=== PATIENT | female | born 1960 | race Caucasian/White ===

== ENCOUNTER 2017-07-20 15:47 | Emergency (ER) | payer BC ==
--- NOTE | 2017-07-20 16:52 | ED ---
Extremity Problem HPI - General Chief complaint: Extremity Problem,Nontraumatic Stated complaint: Post Op/Foot infection Time Seen by Provider: 07/20/17 16:00 Source: patient Mode of arrival: ambulatory Limitations: no limitations - History of Present Illness Initial comments: Patient presents with left ankle swelling. Patient states she had a ganglion cyst removed by her orthopedic surgeon on July 02. Patient states 3 days ago left ankle and foot started swelling. Patient denies pain. Patient denies any new trauma. Patient states she had sutures removed from the incision one week ago. Patient denies numbness or weakness in the foot. Denies temperature changes. Denies pain or skin changes of the elizabeth or calf area. Patient denies history of CHF or diuretic use. Patient denies fevers, chills, nausea, vomiting MD Complaint: joint swelling - Related Data Home Medications Medication Instructions Recorded Confirmed Aspirin [Adult Low Dose Aspirin EC] 81 mg PO DAILY 07/20/17 07/20/17 Cholecalciferol [Vitamin D3] 1,000 unit PO DAILY 07/20/17 07/20/17 Hydroxyurea [Hydrea] 1,000 mg PO Q48H 07/20/17 07/20/17 Hydroxyurea [Hydrea] 500 mg PO Q48H 07/20/17 07/20/17 Sertraline [Zoloft] 100 mg PO DAILY 07/20/17 07/20/17 Allergies Allergy/AdvReac Type Severity Reaction Status Date / Time cephalexin [From Keflex] AdvReac Nausea & Verified 07/20/17 16:15 Vomiting & Diarrhea Review of Systems ROS Statement: Those systems with pertinent positive or pertinent negative responses have been documented in the HPI. ROS Other: All systems not noted in ROS Statement are negative. Constitutional: Denies: fever, chills Eyes: Denies: vision change ENT: Denies: throat pain Respiratory: Denies: cough, dyspnea Cardiovascular: Denies: chest pain Endocrine: Denies: fatigue Gastrointestinal: Denies: abdominal pain, nausea, vomiting Genitourinary: Denies: urgency, dysuria Musculoskeletal: Reports: joint swelling. Denies: back pain, arthralgia, myalgia Skin: Denies: rash, change in color Neurological: Denies: weakness, numbness Past Medical History Past Medical History: Blood Disorder History of Any Multi-Drug Resistant Organisms: None Reported Past Surgical History: Appendectomy, Cholecystectomy, Hysterectomy, Orthopedic Surgery Additional Past Surgical History / Comment(s): left foot, right hand, knee, partical hyster Past Psychological History: Depression Smoking Status: Former smoker Past Alcohol Use History: Occasional Past Drug Use History: None Reported General Exam - General Exam Comments Initial Comments: No acute distress. Conversing normally. Calm, pleasant. Well appearing. Not apparent pain. Limitations: no limitations General appearance: alert, in no apparent distress Head exam: Present: atraumatic, normocephalic Eye exam: Present: EOMI ENT exam: Present: mucous membranes moist Neck exam: Present: normal inspection Respiratory exam: Present: normal lung sounds bilaterally Cardiovascular Exam: Present: regular rate, normal rhythm GI/Abdominal exam: Present: soft. Absent: distended Extremities exam: Present: joint swelling, other (Trace pitting edema of the left foot and left ankle medially and laterally. No gross deformities of the ankle. No bony tenderness of the ankle. Minimal pain with range of motion of left ankle.) Neurological exam: Present: alert, oriented X3 Psychiatric exam: Present: normal affect, normal mood Skin exam: Present: warm, dry, intact, normal color, other (Mild warmth of left ankle. Left lateral ankle incision appears well-healed, no drainage. No erythema of the left lower extremity or left ankle.). Absent: rash, erythema Course Vital Signs 07/20/17 15:51 Temperature 98.3 F Pulse Rate 100 Respiratory 20 Rate Blood Pressure 147/65 O2 Sat by Pulse 98 Oximetry Medical Decision Making - Medical Decision Making Mild swelling of left ankle left foot, no other skin changes appreciated. No signs of acute infection. WBC 4.3 Afebrile. X-ray left ankle shows soft tissue swelling, no acute fracture or signs of osteomyelitis. Patient updated with the results. At this time and do not feel patient has signs of infection requiring antibiotic treatment. Discussed it with patient and she agrees. Discussed rest, elevation, compression, anti-inflammatory medication therapies. Patient agrees to follow-up in her ortho surgeon's office tomorrow. Return to ER if new or worsening symptoms. We'll discharge home at this time. - Lab Data Result diagrams: 07/20/17 17:06 07/20/17 17:06 Lab Results 07/20/17 07/20/17 Range/Units 17:06 17:06 WBC 4.3 (3.8-10.6) k/uL RBC 3.40 L (3.80-5.40) m/uL Hgb 11.3 L (11.4-16.0) gm/dL Hct 35.1 (34.0-46.0) % MCV 103.1 H (80.0-100.0) fL MCH 33.2 (25.0-35.0) pg MCHC 32.2 (31.0-37.0) g/dL RDW 19.0 H (11.5-15.5) % Plt Count 242 (150-450) k/uL Neutrophils % (Manual) 78 % Band Neutrophils % 5 % Lymphocytes % (Manual) 16 % Eosinophils % (Manual) 1 % Neutrophils # (Manual) 3.50 (1.3-7.7) k/uL Lymphocytes # (Manual) 0.69 L (1.0-4.8) k/uL Eosinophils # (Manual) 0.04 (0-0.7) k/uL Nucleated RBCs 0 (0-0) /100 WBC Manual Slide Review Performed Toxic Granulation Present Large Platelets Present Polychromasia Present Hypochromasia Slight Poikilocytosis Slight Anisocytosis Slight Anisocytosis (manual) Present Macrocytosis Moderate Sodium 141 (137-145) mmol/L Potassium 4.5 (3.5-5.1) mmol/L Chloride 105 (98-107) mmol/L Carbon Dioxide 24 (22-30) mmol/L Anion Gap 12 mmol/L BUN 15 (7-17) mg/dL Creatinine 0.70 (0.52-1.04) mg/dL Est GFR (MDRD) Af Amer >60 (>60 ml/min/1.73 sqM) Est GFR (MDRD) Non-Af >60 (>60 ml/min/1.73 sqM) Glucose 94 (74-99) mg/dL Calcium 9.0 (8.4-10.2) mg/dL C-Reactive Protein 16.0 H (<10.0) mg/L Disposition Clinical Impression: Left ankle swelling Disposition: HOME SELF-CARE Condition: Good Instructions: Swollen Joint (ED) Additional Instructions: Make appointment to be evaluated tomorrow by your orthopedic surgeon. Return to ER if new or worsening symptoms including redness, fevers, nausea, vomiting, pain. Referrals: Jay Rothman Jr, DO [Primary Care Provider] - 1-2 days
[2017-07-20 17:19] LABS: Anisocytosis Slight; CH 33.9; CHCM 33.1; HCT 35.1 % (34.0-46.0); HDW 3.99; HGB 11.3 gm/dL (11.4-16.0); Hypochromasia Slight; MCH 33.2 pg (25.0-35.0); MCHC 32.2 g/dL (31.0-37.0); MCV 103.1 fL (80.0-100.0); Macrocytosis Moderate; Poikilocytosis Slight; WBC 4.3 k/uL (3.8-10.6); WBC (Perox) 4.24
--- NOTE | 2017-07-20 17:29 | XR ---
EXAMINATION TYPE: XR ankle complete LT DATE OF EXAM: 07/20/2017 CLINICAL HISTORY: Prior cyst removal with persistent swelling. TECHNIQUE: Frontal, lateral and oblique images of the left ankle are obtained. COMPARISON: None. FINDINGS: Mild soft tissue swelling is seen of the left ankle without focality. There is no acute fr acture/dislocation evident in the left ankle. The ankle mortise appears within normal limits. Modera te Achilles and plantar enthesophytes are noted. IMPRESSION: 1. Mild generalized soft tissue swelling of the left ankle without focality. 2. No acute fracture or dislocation in the left ankle. 3. Moderate Achilles and plantar heel spurs.
[2017-07-20 17:30] LABS: Anion Gap 12 mmol/L; Blood Urea Nitrogen 15 mg/dL (7-17); Carbon Dioxide 24 mmol/L (22-30); Chloride 105 mmol/L (98-107); Glucose 94 mg/dL (74-99); Non-African American GFR(MDRD) >60 (>60 ml/min/1.73 sqM); Potassium 4.5 mmol/L (3.5-5.1); Sodium 141 mmol/L (137-145)
[2017-07-20 17:37] LABS: Add Differential Manual Differential
[2017-07-20 17:42] LABS: Band Neutrophils % 5 %; Large Platelets Present; Manual Review Performed; Nucleated Red Blood Cells 0 /100 WBC (0-0); Polychromasia Present; Total Cells Counted 100; Toxic Granulation Present
[2017-07-20 18:14] LABS: Erythrocyte Sedimentation Rate 2 mm/hr (0-20)
[2017-07-20 18:16] VITALS: BP 112/55; PULSE 80; RESP 16; TEMP 98.7
== END 2017-07-20 18:14 | disposition home or self-care (01) ==
LOC: EC 15:47
DX: M25.472 Effusion, left ankle (principal); M25.475 Effusion, left foot; M79.89 Other specified soft tissue disorders; F32.9 Major depressive disorder, single episode, unspecified; Z87.891 Personal history of nicotine dependence; Z79.82 Long term (current) use of aspirin; Z79.899 Other long term (current) drug therapy; Z88.1 Allergy status to other antibiotic agents; Z98.890 Other specified postprocedural states
CPT/HCPCS: 36415; 80048; 85025; 85652; 86140; 99283

== ENCOUNTER → 2017-08-27 | Outpatient (CLI) | payer BC ==
--- NOTE | 2017-08-27 11:43 | BD ---
EXAMINATION TYPE: MG DEXA axial skeleton. DATE OF EXAM: 08/27/2017 COMPARISON: NONE CLINICAL HISTORY: Osteoporosis screening . Postmenopausal female. Height: 5 FT 1 IN Weight: 158 FRAX RISK QUESTIONS: Alcohol (3 or more units per day): NO Family History (Parent hip fracture): NO Glucocorticoids (More than 3mos): NO (Ex: prednisone, prednisolone, methylprednisolone, dexamethasone, and hydrocortisone). History of Fracture in Adulthood: NO Secondary Osteoporosis: 1. Type 1 Diabetes: NO 2. Hyperthyroidism: NO 3. Menopause before 45: NO 4. Malnutrition: NO 5. Chronic liver disease: NO Rheumatoid Arthritis: NO Current Tobacco Use: NO RISK FACTORS HISTORY OF: Active: YES Postmenopausal woman: PART HYST AGE37 MEDICATIONS: Additional Medications: VIT D , HYDREA, ZOLOFT, BABY ASPIRIN Additional History: EXAM MEASUREMENTS: Bone mineral densitometry was performed using the [employer] System. Bone mineral density as measured about the Lumbar spine is: ----- L1-L4(G/cm2): 1.203 T Score Values are as follows: ----- L2: 0.6 ----- L3: -0.2 ----- L4: -0.3 ----- L1-L4: 0.2 Bone mineral density has: INCREASED 5.1 % since study of: 2010 Bone mineral density about the R hip (g/cm2): 1.055 Bone mineral density about the L hip (g/cm2): 1.138 T Score values are as follows: -----R Neck: 0.1 -----L Neck: 0.7 -----R Total: 0.9 -----L Total: 1.2 Bone mineral density has: INCREASED 11.7 % since study of: 2010 IMPRESSION: Normal (Values between +1 and -1 indicate normal bone mass). Consider repeating this study in 5 year s or sooner if there is some new clinical indication. NOTE: T-SCORE=SD OF THE YOUNG ADULT MEAN.
--- NOTE | 2017-08-29 06:58 | MM ---
Reason for exam: screening (asymptomatic). Last mammogram was performed 2 years and 5 months ago. History: Patient is postmenopausal. Took estrogen for 3 months. Physical Findings: A clinical breast exam by your physician is recommended on an annual basis and results should be correlated with mammographic findings. MG 3D Screening Mammo W/Cad Bilateral CC and MLO view(s) were taken. Prior study comparison: March 31, 2015, bilateral MG screening mammo w CAD. April 23, 2012, [facility] DIGITAL LEFT BREAST MAMMOGRAM w/CAD. The breast tissue is heterogeneously dense. This may lower the sensitivity of mammography. There is no discrete abnormality. No significant changes when compared with prior studies. ASSESSMENT: Negative, BI-RAD 1 RECOMMENDATION: Routine screening mammogram of both breasts in 1 year.
== END | disposition home or self-care (01) ==
LOC: RADMAMWWP 09:25
PROVIDERS: ATTEND Obstetrics & Gynecology
DX: Z12.31 Encounter for screening mammogram for malignant neoplasm of breast (principal); M89.9 Disorder of bone, unspecified
CPT/HCPCS: 77063; 77067; 77080

== ENCOUNTER → 2018-06-05 | Outpatient (CLI) | payer BC ==
--- NOTE | 2018-06-05 17:09 | XR ---
EXAMINATION TYPE: XR chest 2V DATE OF EXAM: 06/05/2018 COMPARISON: Prior chest x-ray 08/01/2016 HISTORY: Cough and fever, polycythemia TECHNIQUE: Frontal and lateral views of the chest are obtained. FINDINGS: There is no focal air space opacity, pleural effusion, or pneumothorax seen. The cardiac silhouette size is within normal limits. The osseous structures are intact. IMPRESSION: No acute cardiopulmonary process. The exam is stable.
== END | disposition home or self-care (01) ==
LOC: RADXRMAIN 16:46
PROVIDERS: ATTEND Internal Medicine Hematology & Oncology
DX: R50.9 Fever, unspecified (principal); D46.9 Myelodysplastic syndrome, unspecified; D45 Polycythemia vera; D47.3 Essential (hemorrhagic) thrombocythemia; I10 Essential (primary) hypertension
CPT/HCPCS: 71046

== ENCOUNTER → 2019-06-28 | Outpatient (CLI) | payer BC ==
--- NOTE | 2019-06-28 13:44 | XR ---
EXAMINATION TYPE: XR chest 2V DATE OF EXAM: 06/28/2019 COMPARISON: Prior chest x-ray 06/05/2018 HISTORY: Cough, congestion and weakness TECHNIQUE: Frontal and lateral views of the chest are obtained. FINDINGS: There is no focal air space opacity, pleural effusion, or pneumothorax seen. The cardiac silhouette size is within normal limits. The osseous structures are intact. IMPRESSION: No acute cardiopulmonary process.
== END | disposition home or self-care (01) ==
LOC: RADXRMAIN 10:23
PROVIDERS: ATTEND Family Medicine
DX: R05 Cough (principal)
CPT/HCPCS: 71046

== ENCOUNTER → 2019-10-01 | Outpatient (CLI) | payer BC ==
--- NOTE | 2019-10-04 11:25 | MM ---
Reason for exam: screening (asymptomatic). Last mammogram was performed 2 years and 1 month ago. History: Patient is postmenopausal and history of other cancer. Took hormonal contraceptives for 9 months. Took estrogen for 3 months. Physical Findings: A clinical breast exam by your physician is recommended on an annual basis and results should be correlated with mammographic findings. MG Screening Mammo w CAD Bilateral CC and MLO view(s) were taken. Prior study comparison: August 27, 2017, bilateral MG 3d screening mammo w/cad. March 31, 2015, bilateral MG screening mammo w CAD. There are scattered fibroglandular densities. Benign appearing bilateral calcifications. No suspicious abnormality. Right biopsy marker noted. No significant changes when compared with prior studies. ASSESSMENT: Benign, BI-RAD 2 RECOMMENDATION: Routine screening mammogram of both breasts in 1 year.
== END | disposition home or self-care (01) ==
LOC: RADMAMWWP 10:09
PROVIDERS: ATTEND Obstetrics & Gynecology
DX: Z12.31 Encounter for screening mammogram for malignant neoplasm of breast (principal)
CPT/HCPCS: 77067

== ENCOUNTER → 2020-02-18 | Outpatient (CLI) | payer BC ==
[2020-02-18 11:00] LABS: Anisocytosis Slight; HCT 35.3 % (34.0-46.0); HGB 11.2 gm/dL (11.4-16.0); Hypochromasia Slight; MCHC 31.8 g/dL (31.0-37.0); Mean Platelet Volume 8.8; Platelet Count 299 k/uL (150-450); Poikilocytosis Slight; RBC 3.88 m/uL (3.80-5.40)
[2020-02-18 12:59] LABS: Band Neutrophils % 11 %; Eosinophils # (M) 0.17 k/uL (0-0.7); Metamyelocytes % 4 %; Myelocytes # (M) 0.17 k/uL (0); Myelocytes % 2 %; Neutrophils % (M) 58 %; Nucleated Red Blood Cells 4 /100 WBC (0-0); Promyelocytes # (M) 0.17 k/uL (0); Promyelocytes % 2 %; Total Cells Counted 200
[2020-02-18 13:00] LABS: Lymphocytes # (M) 1.51 k/uL (1.0-4.8); Metamyelocytes # (M) 0.34 k/uL (0); Monocytes # (M) 0.34 k/uL (0-1.0); WBC 8.4 k/uL (3.8-10.6)
[2020-02-18 13:03] LABS: Polychromasia Present
[2020-02-18 15:43] LABS: Albumin 4.5 g/dL (3.80-4.90); Albumin/Globulin Ratio 2.65 (1.60-3.17); Anion Gap 6.2 mmol/L (4.00-12.00); BUN/Creat Ratio 23.33 Ratio (12.00-20.00); Calcium 9.1 mg/dL (8.7-10.3); Carbon Dioxide 26.8 mmol/L (21.6-31.8); Globulin 1.7 g/dL (1.6-3.3); Non-African American GFR(CKD) 98.4 (60.0-200.0); Potassium 4.6 mmol/L (3.5-5.5); Total Bilirubin 0.6 mg/dL (0.2-1.2); Total Protein 6.2 g/dL (6.2-8.2)
== END | disposition home or self-care (01) ==
LOC: LABWHC1 09:45
PROVIDERS: ATTEND Internal Medicine
DX: D47.1 Chronic myeloproliferative disease (principal)
CPT/HCPCS: 36415; 80053; 83615; 85025

== ENCOUNTER → 2020-07-25 | Outpatient (CLI) | payer BC ==
[2020-07-25 09:30] LABS: Anisocytosis Slight; HCT 38.2 % (34.0-46.0); HGB 12.8 gm/dL (11.4-16.0); MCH 29.2 pg (25.0-35.0); MCHC 33.4 g/dL (31.0-37.0); MCV 87.5 fL (80.0-100.0); Mean Platelet Volume 9.2; Platelet Count 216 k/uL (150-450); Poikilocytosis Slight; RBC 4.37 m/uL (3.80-5.40); RDW 18.8 % (11.5-15.5); WBC 9.6 k/uL (3.8-10.6)
[2020-07-25 10:10] LABS: Band Neutrophils % 12 %; Lymphocytes # (M) 1.82 k/uL (1.0-4.8); Metamyelocytes # (M) 0.29 k/uL (0); Metamyelocytes % 3 %; Monocytes # (M) 0.29 k/uL (0-1.0); Myelocytes # (M) 0.29 k/uL (0); Myelocytes % 3 %; Neutrophils % (M) 60 %; Nucleated Red Blood Cells 0 /100 WBC (0-0); Total Cells Counted 200
[2020-07-25 10:11] LABS: Polychromasia Present
[2020-07-25 19:16] LABS: African American GFR (CKD) 92.2 (60.0-200.0); Albumin 5.1 g/dL (3.80-4.90); Albumin/Globulin Ratio 2.55 (1.60-3.17); Anion Gap 10.3 mmol/L (4.00-12.00); BUN/Creat Ratio 31.25 Ratio (12.00-20.00); Calcium 9.7 mg/dL (8.7-10.3); Carbon Dioxide 23.7 mmol/L (21.6-31.8); Non-African American GFR(CKD) 79.6 (60.0-200.0); Total Bilirubin 0.6 mg/dL (0.3-1.2); Total Protein 7.1 g/dL (6.2-8.2)
== END | disposition home or self-care (01) ==
LOC: LABWHC1 08:07
PROVIDERS: ATTEND Internal Medicine
DX: D47.1 Chronic myeloproliferative disease (principal)
CPT/HCPCS: 36415; 80053; 85025

== ENCOUNTER → 2021-01-19 | Outpatient (CLI) | payer BC ==
[2021-01-19 14:41] LABS: HCT 37.5 % (37.2-46.3); HGB 11.9 g/dL (12.0-15.0); MCH 28.7 pg (27.0-32.0); MCHC 31.7 g/dL (32.0-37.0); MCV 90.4 fL (80.0-97.0); Platelet Count 163 X 10*3/uL (140-440); RBC 4.15 X 10*6/uL (4.10-5.20); RDW 17.3 % (11.5-14.5); WBC 5.96 X 10*3/uL (4.50-10.00)
[2021-01-19 15:15] LABS: Basophils # (M) 0.12 X 10*3/uL (0.00-0.10); Eosinophils # (M) 0.18 X 10*3/uL (0.04-0.35); Lymphocytes # (M) 1.43 X 10*3/uL (0.90-5.00); Metamyelocytes % 4 % (0-0); Monocytes # (M) 0.18 X 10*3/uL (0.20-1.00); Neutrophils # (M) 3.81 X 10*3/uL (2.00-8.90); Neutrophils % (M) 64 %
[2021-01-19 17:40] LABS: African American GFR (CKD) 107.6 (60.0-200.0); Albumin 4.7 g/dL (3.80-4.90); Albumin/Globulin Ratio 2.47 (1.60-3.17); Anion Gap 7.7 mmol/L (4.00-12.00); BUN/Creat Ratio 24.29 Ratio (12.00-20.00); Calcium 9.7 mg/dL (8.7-10.3); Carbon Dioxide 28.3 mmol/L (21.6-31.8); Globulin 1.9 g/dL (1.6-3.3); Non-African American GFR(CKD) 92.9 (60.0-200.0); Potassium 4.3 mmol/L (3.5-5.5); Total Bilirubin 0.5 mg/dL (0.2-1.2); Total Protein 6.6 g/dL (6.2-8.2)
== END | disposition home or self-care (01) ==
LOC: LABWHC1 10:01
PROVIDERS: ATTEND Internal Medicine
DX: D47.1 Chronic myeloproliferative disease (principal)
CPT/HCPCS: 36415; 80053; 85025

== ENCOUNTER → 2022-02-13 | Outpatient (CLI) | payer BC ==
[2022-02-13 14:22] LABS: HCT 30.2 % (37.2-46.3); MCH 27.6 pg (27.0-32.0); MCHC 29.8 g/dL (32.0-37.0); MCV 92.6 fL (80.0-97.0); Mean Platelet Volume 10.7 fL (9.5-12.2); NRBC Per 100 WBC 2.6 /100 WBCS (0.0-0.0); Platelet Count 143 X 10*3/uL (140-440); RBC 3.26 X 10*6/uL (4.10-5.20); RDW 16.8 % (11.5-14.5); WBC 2.71 X 10*3/uL (4.50-10.00)
[2022-02-13 15:47] LABS: Basophils # (M) 0.03 X 10*3/uL (0.00-0.10); Eosinophils # (M) 0.05 X 10*3/uL (0.04-0.35); Hypochromasia (M) 2+; Lymphocytes # (M) 0.54 X 10*3/uL (0.90-5.00); Metamyelocytes % 4 % (0-0); Monocytes # (M) 0.05 X 10*3/uL (0.20-1.00); Myelocytes % 1 % (0-0); Neutrophils % (M) 70 %; Tear Drop Cells 2+
== END | disposition home or self-care (01) ==
LOC: LABWHC1 08:18
PROVIDERS: ATTEND Internal Medicine
DX: D47.1 Chronic myeloproliferative disease (principal)
CPT/HCPCS: 36415; 85025

== ENCOUNTER → 2022-07-29 | Outpatient (CLI) | payer BC ==
--- NOTE | 2022-07-30 07:31 | MM ---
Reason for Exam: Screening (asymptomatic). Last mammogram was performed 2 year(s) and 10 month(s) ago. Patient History: Menarche at age 12. First Full-Term at age 26. Hysterectomy at age 38. Postmenopausal. Patient has history of breast feeding. Other cancer under age 50. Estrogen for 3 months. Hormonal Contraceptives for 9 months. Risk Values: Jodi 5 year model risk: 1.6%. NCI Lifetime model risk: 6.8%. Prior Study Comparison: 03/31/2015 Bilateral Screening Mammogram, [facility]. 08/27/2017 Bilateral Screening Mammogram, [facility]. 10/01/2019 Bilateral Screening Mammogram, [facility]. Tissue Density: There are scattered fibroglandular densities. Findings: Analyzed By CAD. There is no suspicious group of microcalcifications or new suspicious mass in either breast. Benign round appearing bilateral calcifications. No significant change from prior exams. Overall Assessment: Benign, BI-RAD 2 Management: Screening Mammogram of both breasts in 1 year. A clinical breast exam by your physician is recommended on an annual basis and results should be correlated with mammographic findings. Electronically signed and approved by: Rigo Sanches D.O.
== END | disposition home or self-care (01) ==
LOC: RADMAMWWP 07:47
PROVIDERS: ATTEND Family Medicine
DX: Z12.31 Encounter for screening mammogram for malignant neoplasm of breast (principal); Z78.0 Asymptomatic menopausal state
CPT/HCPCS: 77067

== ENCOUNTER 2023-01-07 10:18 | Emergency (ER) | payer BC ==
--- NOTE | 2023-01-07 11:56 | XR ---
EXAMINATION TYPE: XR chest 2V DATE OF EXAM: 01/07/2023 COMPARISON: 06/28/2019 HISTORY: Shortness of breath TECHNIQUE: Frontal and lateral views of the chest are obtained. FINDINGS: Scattered senescent parenchymal changes noted. Hyperinflation compatible with COPD. Patchy infiltrates seen throughout both lung hernandez suspicious for underlying pneumonia. Central veno us line in place. Heart size is stable. Mediastinal structures are stable and grossly unremarkable. No evidence for hilar prominence. Degenerative changes dorsal spine. IMPRESSION: 1. Patchy infiltrates seen throughout both lung hernandez suspicious for underlying pneumonia.
--- NOTE | 2023-01-07 12:08 | ED ---
General Adult HPI - General Chief complaint: Shortness of Breath Stated complaint: SOB Time Seen by Provider: 01/07/23 10:57 Source: patient, RN notes reviewed Mode of arrival: wheelchair Limitations: no limitations - History of Present Illness Initial comments: 62-year-old female presents emergency Department chief complaint of shortness of breath. She states over the last few days to 1 week she's had increasing shortness of breath and a cough which she states is dry. Patient does admit that she had a bone marrow transplant 62days ago at [facility]. Patient was advised, emergency department for evaluation given her shortness of breath. She did have an appointment last hemoglobin was 8, platelets were in the 50s. Patient has received a few transfusion since her transplant. Patient denies fever, chills, night sweats. She normally wears oxygen at nighttime though was found to be hypoxic upon arrival was placed on oxygen. Patient states been dealing with intermittent leg swelling she has had a recent ultrasound which was negative for DVT. She has no history of PE. - Related Data Home Medications Medication Instructions Recorded Confirmed Sertraline [Zoloft] 100 mg PO DAILY 07/20/17 01/07/23 0.9 % Sodium Chloride [Sodium 5 ml IV DIRECTED 01/07/23 01/07/23 Chloride Flush] Acyclovir [Zovirax] 400 mg PO BID 01/07/23 01/07/23 Cholecalciferol [Vitamin D3 (25 25 mcg PO DAILY 01/07/23 01/07/23 Mcg = 1000 Iu)] Cyclobenzaprine [Flexeril] 5 mg PO TID PRN 01/07/23 01/07/23 Fexofenadine HCl [Luiza Allergy] 180 mg PO DAILY 01/07/23 01/07/23 Fluconazole 150 mg PO DAILY 01/07/23 01/07/23 Gabapentin [Neurontin] 100 mg PO TID 01/07/23 01/07/23 Heparin 10 Unit/Ml 50 units IV DIRECTED 01/07/23 01/07/23 Letermovir [Prevymis] 240 mg PO DAILY 01/07/23 01/07/23 Levothyroxine Sodium [Synthroid] 75 mcg PO DAILY 01/07/23 01/07/23 Losartan Potassium [Cozaar] 100 mg PO DAILY 01/07/23 01/07/23 Magnesium Sulfate Iv Infusion 4 gm IV DIRECTED 01/07/23 01/07/23 Omeprazole [PriLOSEC] 20 mg PO DAILY 01/07/23 01/07/23 Potassium Chloride [Klor-Con M20] 40 meq PO DAILY 01/07/23 01/07/23 Prochlorperazine [Compazine] 10 mg PO Q6H PRN 01/07/23 01/07/23 Tacrolimus [Prograf] 1.5 mg PO BID 01/07/23 01/07/23 Tiotropium 2.5 Mcg/Puff [Spiriva 2 puff INHALATION RT-DAILY 01/07/23 01/07/23 Respimat 2.5 Mcg] amLODIPine [Norvasc] 10 mg PO DAILY 01/07/23 01/07/23 cycloSPORINE 0.05% OPHTH SOLN 1 drop BOTH EYES BID 01/07/23 01/07/23 [Restasis] oxyCODONE HCL [Roxicodone] 5 mg PO Q4H PRN 01/07/23 01/07/23 ursodioL [Ursodiol] 600 mg PO BID 01/07/23 01/07/23 Allergies Allergy/AdvReac Type Severity Reaction Status Date / Time cephalexin [From Keflex] AdvReac Nausea & Verified 01/07/23 12:17 Vomiting & Diarrhea Review of Systems ROS Statement: Those systems with pertinent positive or pertinent negative responses have been documented in the HPI. ROS Other: All systems not noted in ROS Statement are negative. Past Medical History Past Medical History: Blood Disorder History of Any Multi-Drug Resistant Organisms: None Reported Past Surgical History: Appendectomy, Cholecystectomy, Hysterectomy, Orthopedic Surgery Additional Past Surgical History / Comment(s): left foot, right hand, knee, partical hyster, bone marrow transplant 11/06/22. Past Psychological History: Depression Smoking Status: Former smoker Past Alcohol Use History: Occasional Past Drug Use History: None Reported General Exam Limitations: no limitations General appearance: alert, in no apparent distress Head exam: Present: atraumatic, normocephalic, normal inspection Eye exam: Present: normal appearance, PERRL, EOMI. Absent: scleral icterus, conjunctival injection, periorbital swelling ENT exam: Present: normal exam, normal oropharynx, mucous membranes moist Neck exam: Present: normal inspection, full ROM. Absent: tenderness, meningismus, lymphadenopathy Respiratory exam: Present: normal lung sounds bilaterally. Absent: respiratory distress, wheezes, rales, rhonchi, stridor Cardiovascular Exam: Present: normal rhythm, tachycardia, normal heart sounds. Absent: systolic murmur, diastolic murmur, rubs, gallop, clicks GI/Abdominal exam: Present: soft, normal bowel sounds. Absent: distended, tenderness, guarding, rebound, rigid Course Vital Signs 01/07/23 01/07/23 01/07/23 10:51 10:55 10:57 Temperature 98.5 F Pulse Rate 109 H Respiratory 18 Rate Blood Pressure 115/80 O2 Sat by Pulse 88 L 81 L 91 L Oximetry 01/07/23 01/07/23 01/07/23 11:55 12:00 13:00 Temperature Pulse Rate Respiratory 20 Rate Blood Pressure O2 Sat by Pulse 88 L 92 L Oximetry Medical Decision Making - Medical Decision Making Was pt. sent in by a medical professional or institution (, PA, PYTHON CONSULTANT, urgent care, hospital, or fdc...) When possible be specific @ -[Oncology Did you speak to anyone other than the patient for history (EMS, parent, family, police, friend...)? What history was obtained from this source @ -Daughter in her room providing all recent laboratory studies, recent oncology evaluation Did you review nursing and triage notes (agree or disagree)? Why? @ -I reviewed and agree with nursing and triage notes Were old charts reviewed (outside hosp., previous admission, EMS record, old EKG, old radiological studies, urgent care reports/EKG's, fdc records)? Report findings @ -Reviewed prior laboratory studies Differential Diagnosis (chest pain, altered mental status, abdominal pain women, abdominal pain men, vaginal bleeding, weakness, fever, dyspnea, syncope, headache, dizziness, GI bleed, back pain, seizure, CVA, palpatations, mental health, musculoskeletal)? @ -Differential Dyspnea: Coronary syndrome, arrhythmia, tamponade, asthma, COPD, pulmonary embolism, pneumonia, pneumothorax, pulmonary effusion, anaphylaxis, diabetic ketoacidosis, flailed chest, pulmonary contusion, diaphragmatic rupture, anemia, neuromuscular, this is not meant to be an all-inclusive list. le EKG interpreted by me (3pts min.). @ -As above X-rays interpreted by me (1pt min.). @ -Chest x-ray shows patchy areas concerning for pneumonia CT interpreted by me (1pt min.). @ -CT PE shows negative PE, alveolar pneumonia with parapneumonic effusions U/S interpreted by me (1pt. min.). @ -None done What testing was considered but not performed or refused? (CT, X-rays, U/S, labs)? Why? @ -None What meds were considered but not given or refused? Why? @ -None Did you discuss the management of the patient with other professionals (professionals i.e. , PA, PYTHON CONSULTANT, lab, RT, psych nurse, bilingual social worker, solar project coordination specialist, teacher, administrative services officer, watch caser)? Give summary @ -Bone marrow transplant physician at [facility] regarding the patient's current findings and need for transfer, case discussed with [facility]'s transfer line Was smoking cessation discussed for >3mins.? @ -No Was critical care preformed (if so, how long)? @ -No Were there social determinants of health that impacted care today? How? (Homelessness, low income, unemployed, alcoholism, drug addiction, transportation, low edu. Level, literacy, decrease access to med. care, mcc, rehab)? @ -No Was there de-escalation of care discussed even if they declined (Discuss DNR or withdrawal of care, Hospice)? DNR status @ -No What co-morbidities impacted this encounter? (DM, HTN, Smoking, COPD, CAD, Cancer, CVA, ARF, Chemo, Hep., AIDS, mental health diagnosis, sleep apnea, morbid obesity)? @ -Myelofibrosis syndrome Was patient admitted / discharged? Hospital course, mention meds given and route, prescriptions, significant lab abnormalities, going to OR and other pertinent info. @ -Transferred to [facility] for further treatment and management of patient's pneumonia, recent bone marrow transplant patient was started on cefepime per recommendations of pulmonary transplant physician patient is stable for discharge. Undiagnosed new problem with uncertain prognosis? @ -Yes Drug Therapy requiring intensive monitoring for toxicity (Heparin, Nitro, Insulin, Cardizem)? @ -No Were any procedures done? @ -No Diagnosis/symptom? @ -Pneumonia status post bone marrow transplant Acute, or Chronic, or Acute on Chronic? @ -Acute Uncomplicated (without systemic symptoms) or Complicated (systemic symptoms)? @ -Complicated Side effects of treatment? @ -No Exacerbation, Progression, or Severe Exacerbation? @ -No Poses a threat to life or bodily function? How? (Chest pain, USA, MD, pneumonia, PE, COPD, DKA, ARF, appy, cholecystitis, CVA, Diverticulitis, Homicidal, Suicidal, threat to staff... and all critical care pts) @ -Yes] - Lab Data Result diagrams: 01/07/23 11:34 01/07/23 11:34 Lab Results 01/07/23 01/07/23 01/07/23 Range/Units 11:34 11:34 11:34 WBC 3.7 L (3.8-10.6) k/uL RBC 2.81 L (3.80-5.40) m/uL Hgb 8.0 L (11.4-16.0) gm/dL Hct 23.9 L (34.0-46.0) % MCV 84.9 (80.0-100.0) fL MCH 28.4 (25.0-35.0) pg MCHC 33.4 (31.0-37.0) g/dL RDW 18.7 H (11.5-15.5) % Plt Count 68 L (150-450) k/uL MPV 10.5 Neutrophils % 81 % Lymphocytes % 9 % Monocytes % 5 % Eosinophils % 4 % Basophils % 0 % Neutrophils # 3.0 (1.3-7.7) k/uL Lymphocytes # 0.3 L (1.0-4.8) k/uL Monocytes # 0.2 (0-1.0) k/uL Eosinophils # 0.2 (0-0.7) k/uL Basophils # 0.0 (0-0.2) k/uL Manual Slide Review Performed Hypochromasia Slight Poikilocytosis Marked Anisocytosis Slight PT 13.9 H (9.0-12.0) sec INR 1.4 H (<1.2) APTT 39.0 H (22.0-30.0) sec D-Dimer 0.62 H (<0.60) mg/L FEU Sodium 134 L (137-145) mmol/L Potassium 3.4 L (3.5-5.1) mmol/L Chloride 100 (98-107) mmol/L Carbon Dioxide 24 (22-30) mmol/L Anion Gap 10 mmol/L BUN 5 L (7-17) mg/dL Creatinine 0.46 L (0.52-1.04) mg/dL Est GFR (CKD-EPI)AfAm >90 (>60 ml/min/1.73 sqM) Est GFR (CKD-EPI)NonAf >90 (>60 ml/min/1.73 sqM) Glucose 105 H (74-99) mg/dL Plasma Lactic Acid Shaan (0.7-2.0) mmol/L Calcium 8.2 L (8.4-10.2) mg/dL Total Bilirubin 1.1 (0.2-1.3) mg/dL AST 28 (14-36) U/L ALT 23 (4-34) U/L Alkaline Phosphatase 175 H (38-126) U/L Troponin I (0.000-0.034) ng/mL NT-Pro-B Natriuret Pep pg/mL Total Protein 5.2 L (6.3-8.2) g/dL Albumin 3.1 L (3.5-5.0) g/dL Influenza Type A (PCR) (Not Detectd) Influenza Type B (PCR) (Not Detectd) RSV (PCR) (Not Detectd) SARS-CoV-2 (PCR) (Not Detectd) 01/07/23 01/07/23 01/07/23 Range/Units 11:34 11:34 11:34 WBC (3.8-10.6) k/uL RBC (3.80-5.40) m/uL Hgb (11.4-16.0) gm/dL Hct (34.0-46.0) % MCV (80.0-100.0) fL MCH (25.0-35.0) pg MCHC (31.0-37.0) g/dL RDW (11.5-15.5) % Plt Count (150-450) k/uL MPV Neutrophils % % Lymphocytes % % Monocytes % % Eosinophils % % Basophils % % Neutrophils # (1.3-7.7) k/uL Lymphocytes # (1.0-4.8) k/uL Monocytes # (0-1.0) k/uL Eosinophils # (0-0.7) k/uL Basophils # (0-0.2) k/uL Manual Slide Review Hypochromasia Poikilocytosis Anisocytosis PT (9.0-12.0) sec INR (<1.2) APTT (22.0-30.0) sec D-Dimer (<0.60) mg/L FEU Sodium (137-145) mmol/L Potassium (3.5-5.1) mmol/L Chloride (98-107) mmol/L Carbon Dioxide (22-30) mmol/L Anion Gap mmol/L BUN (7-17) mg/dL Creatinine (0.52-1.04) mg/dL Est GFR (CKD-EPI)AfAm (>60 ml/min/1.73 sqM) Est GFR (CKD-EPI)NonAf (>60 ml/min/1.73 sqM) Glucose (74-99) mg/dL Plasma Lactic Acid Shaan 1.4 (0.7-2.0) mmol/L Calcium (8.4-10.2) mg/dL Total Bilirubin (0.2-1.3) mg/dL AST (14-36) U/L ALT (4-34) U/L Alkaline Phosphatase (38-126) U/L Troponin I <0.012 (0.000-0.034) ng/mL NT-Pro-B Natriuret Pep 621 pg/mL Total Protein (6.3-8.2) g/dL Albumin (3.5-5.0) g/dL Influenza Type A (PCR) (Not Detectd) Influenza Type B (PCR) (Not Detectd) RSV (PCR) (Not Detectd) SARS-CoV-2 (PCR) (Not Detectd) 01/07/23 Range/Units 12:19 WBC (3.8-10.6) k/uL RBC (3.80-5.40) m/uL Hgb (11.4-16.0) gm/dL Hct (34.0-46.0) % MCV (80.0-100.0) fL MCH (25.0-35.0) pg MCHC (31.0-37.0) g/dL RDW (11.5-15.5) % Plt Count (150-450) k/uL MPV Neutrophils % % Lymphocytes % % Monocytes % % Eosinophils % % Basophils % % Neutrophils # (1.3-7.7) k/uL Lymphocytes # (1.0-4.8) k/uL Monocytes # (0-1.0) k/uL Eosinophils # (0-0.7) k/uL Basophils # (0-0.2) k/uL Manual Slide Review Hypochromasia Poikilocytosis Anisocytosis PT (9.0-12.0) sec INR (<1.2) APTT (22.0-30.0) sec D-Dimer (<0.60) mg/L FEU Sodium (137-145) mmol/L Potassium (3.5-5.1) mmol/L Chloride (98-107) mmol/L Carbon Dioxide (22-30) mmol/L Anion Gap mmol/L BUN (7-17) mg/dL Creatinine (0.52-1.04) mg/dL Est GFR (CKD-EPI)AfAm (>60 ml/min/1.73 sqM) Est GFR (CKD-EPI)NonAf (>60 ml/min/1.73 sqM) Glucose (74-99) mg/dL Plasma Lactic Acid Shaan (0.7-2.0) mmol/L Calcium (8.4-10.2) mg/dL Total Bilirubin (0.2-1.3) mg/dL AST (14-36) U/L ALT (4-34) U/L Alkaline Phosphatase (38-126) U/L Troponin I (0.000-0.034) ng/mL NT-Pro-B Natriuret Pep pg/mL Total Protein (6.3-8.2) g/dL Albumin (3.5-5.0) g/dL Influenza Type A (PCR) Not Detected (Not Detectd) Influenza Type B (PCR) Not Detected (Not Detectd) RSV (PCR) Not Detected (Not Detectd) SARS-CoV-2 (PCR) Not Detected (Not Detectd) Disposition Clinical Impression: Myelofibrosis, Pneumonia, Status post bone marrow transplant Disposition: OTHER INSTITUTION NOT DEFINED Condition: Fair Referrals: Jay Rothman Jr, [Primary Care Provider] - 1-2 days Time of Disposition: 16:18 - Out of Hospital Transfer - Req. Specs Out of Hospital Transfer - Requested Specifics: Other Emergency Center ([facility])
[2023-01-07 12:17] LABS: Anisocytosis Slight; Basophils % (A) 0 %; Eosinophils # (A) 0.2 k/uL (0-0.7); Eosinophils % (A) 4 %; HCT 23.9 % (34.0-46.0); Hypochromasia Slight; Lymphocytes # (A) 0.3 k/uL (1.0-4.8); Lymphocytes % (A) 9 %; MCH 28.4 pg (25.0-35.0); MCHC 33.4 g/dL (31.0-37.0); MCV 84.9 fL (80.0-100.0); Mean Platelet Volume 10.5; Monocytes # (A) 0.2 k/uL (0-1.0); Monocytes % (A) 5 %; Neutrophils % (A) 81 %; Poikilocytosis Marked; RBC 2.81 m/uL (3.80-5.40); RDW 18.7 % (11.5-15.5); WBC 3.7 k/uL (3.8-10.6)
[2023-01-07 12:32] LABS: ALT 23 U/L (4-34); AST 28 U/L (14-36); African American GFR (CKD) >90 (>60 ml/min/1.73 sqM); Albumin 3.1 g/dL (3.5-5.0); Alkaline Phosphatase 175 U/L (38-126); Anion Gap 10 mmol/L; Blood Urea Nitrogen 5 mg/dL (7-17); Calcium 8.2 mg/dL (8.4-10.2); Carbon Dioxide 24 mmol/L (22-30); Chloride 100 mmol/L (98-107); Glucose 105 mg/dL (74-99); Non-African American GFR(CKD) >90 (>60 ml/min/1.73 sqM); Potassium 3.4 mmol/L (3.5-5.1); Sodium 134 mmol/L (137-145); Total Bilirubin 1.1 mg/dL (0.2-1.3); Total Protein 5.2 g/dL (6.3-8.2)
[2023-01-07 12:43] LABS: INR 1.4 (<1.2); Prothrombin Time 13.9 sec (9.0-12.0)
[2023-01-07 13:19] LABS: Platelet Count 68 k/uL (150-450)
--- NOTE | 2023-01-07 14:26 | CT ---
EXAMINATION TYPE: CT chest angio for PE DATE OF EXAM: 01/07/2023 COMPARISON: HISTORY: SOB, elevated d dimer CT DLP: 266.3 mGycm CONTRAST: CT chest with contrast and 3D reconstruction with MIP imaging is performed with IV Contrast, patient injected with 100 mL of Isovue 370. Contrast-enhanced CT of the chest was performed through the course of the pulmonary arteries with bre g and mediastinal window settings submitted. 3D reconstruction with MIP imaging was also performed. PULMONARY ARTERIES: The pulmonary arteries and their major tributaries are patent. I do not see matthew dence for sizable filling defect to suggest pulmonary embolic process. LUNGS: There are mixed interstitial and alveolar infiltrates seen about both lung hernandez greatest on the left. There is a small left-sided parapneumonic effusion. Correlate for pneumonia. Right basilar compressive atelectasis. MEDIASTINUM: Thoracic aorta is of normal caliber,however, evaluation is limited given timing of the contrast bolus. If there is concern for thoracic aortic pathology consider VICENTE. Correlate clinicall y . The heart is not enlarged. No evidence for mediastinal mass. No mediastinal lymph nodes greater than 1cm. HILAR STRUCTURES: No evidence for mass. No hilar lymph nodes greater than 1 cm. UPPER ABDOMEN: There appears to be splenomegaly with maximal AP dimension of 17 cm. Probable hepatome kati noted as well. IMPRESSION: 1. No evidence for Pulmonary embolism at this time. 2. Correlate for mixed interstitial and alveolar pneumonia with parapneumonic effusions.
[2023-01-07] MEDS ORDERED: CEFEPIME 2 GM in SODIUM CHLORIDE 0.9% 100 ML IVPB STA (16:11)
[2023-01-07 16:52] VITALS: BP 142/80; PULSE 111; RESP 22; TEMP 99.1
== END 2023-01-07 18:00 | disposition other institution (70) ==
LOC: EC 10:18
DX: J18.9 Pneumonia, unspecified organism (principal); D75.81 Myelofibrosis; F32.A Depression, unspecified; Z20.822 Contact with and (suspected) exposure to COVID-19; Z94.81 Bone marrow transplant status; Z87.891 Personal history of nicotine dependence; Z79.899 Other long term (current) drug therapy
CPT/HCPCS: 36415; 93005; 85379; 83880; 80053; 83605; 84484; 85025; 85610; 85730; 87636; 71046; 71275; 99285; 96365; J0692; Q9967